=== PATIENT | female | born 1945 | race Caucasian/White ===

== ENCOUNTER 2018-07-06 13:16 | Inpatient (IN) | payer MEDICARE, OTHER ==
[~2018-07-06] VITALS: Ht 165.1 cm; Wt 65.3 kg
[~2018-07-06 13:16] MED LIST: VENTOLIN INH; Z FERROUS GLUCON PO; Z.0.ADVAIR 100-501 E IH; Z.0.ASPIR 8181 MG PO; Z.0.CARVEDILOL25 MG PO; Z.0.DETROL LA4 MG PO; Z.0.EXFORGE HCT 101 PO; Z.0.KLOR-CON20 MEQ PO; Z.0.LASIX20 MG PO; Z.0.LEVOTHROID75 MCG PO; Z.0.LEXAPRO20 MG PO; Z.0.LIPITOR10 MG PO; Z.0.MIRAPEX0.25 MG PO; Z.0.NEURONTIN300 MG PO; Z.0.PLAVIX75 MG PO; Z.0.PREMARIN0.625 MG PO; Z.0.PROTONIX40 MG PO; Z.0.VOLTAREN75 MG PO; Z.0.ZYRTEC10 M3 PO; [UNRECOGNIZED DRUG - OTHER] PO
[2018-07-06 14:08] LABS: BASOPHILS # (AUTO) 0.1 (0.0-0.1); BASOPHILS % 0.5 % (0.0-1.0); EOSINOPHILS # (AUTO) 0.4 (0.0-0.4); EOSINOPHILS % 3.4 % (0.0-6.0); HEMATOCRIT 36.7 % (34.2-44.1); HEMOGLOBIN 12.2 g/dL (12.0-16.0); LYMPHOCYTES # (AUTO) 1.2 (1.0-3.2); MEAN CORPUSCULAR HEMOGLOBIN 30.4 pg (28-32); MEAN CORPUSCULAR HGB CONC 33.2 g/dL (31-35); MEAN CORPUSCULAR VOLUME 91.5 fL (81-99); MONOCYTES # (AUTO) 0.8 (0.2-0.8); MONOCYTES % 7.5 % (4.4-11.3); NEUTROPHILS # (AUTO) 8.2 (2.1-6.9); NEUTROPHILS % 77.2 % (38.7-80.0); PLATELET COUNT 263 x10e3/uL (140-360); RED BLOOD COUNT 4.01 x10e6/uL (3.6-5.1); RED CELL DISTRIBUTION WIDTH 13.3 % (11.7-14.4)
[2018-07-06] MEDS ORDERED: AZITHROMYCIN 500MG/NS 250 ML 250 ML IV ONE (14:16)
[2018-07-06 14:27] LABS: ALANINE AMINOTRANSFERASE 22 IU/L (0-55); ALBUMIN 4.1 g/dL (3.5-5.0); ALBUMIN/GLOBULIN RATIO 1.2 (0.8-2.0); ALKALINE PHOSPHATASE 41 IU/L (40-150); ANION GAP 11.9 mmol/L (8-16); BLOOD UREA NITROGEN 16 mg/dL (7-26); BUN/CREATININE RATIO 20 (6-25); CALCIUM 9.8 mg/dL (8.4-10.2); CARBON DIOXIDE 29 mmol/L (22-29); CHLORIDE 100 mmol/L (98-107); CREATINE KINASE 114 IU/L (29-168); CREATININE, SERUM 0.81 mg/dL (0.57-1.11); EST GLOMERULAR FILTRATION RATE > 60 ML/MIN (60-); GLUCOSE 97 mg/dL (74-118); LIPASE 16 U/L (8-78); POTASSIUM 3.9 mmol/L (3.5-5.1); SODIUM 137 mmol/L (136-145)
[2018-07-06] MEDS ORDERED: CEFTRIAXONE SOD 1 GM VIAL IV SCH (14:30)
[2018-07-06] MEDS ORDERED: ASPIRIN 81 MG CHEW TAB PO ONE (14:30)
[2018-07-06] MEDS ORDERED: ALBUTEROL SULF 0.083% NEB SOLN 3 ML NEB NEB SCH (14:30)
[2018-07-06] MEDS ORDERED: LOSARTAN POTAS100 MG PO (15:41)
[2018-07-06] MEDS ORDERED: AMLODIPINE BESYL5 MG PO (15:41)
[2018-07-06] MEDS ORDERED: TIZANIDINE HCL4 MG PO (15:41)
[2018-07-06] MEDS ORDERED: FENOFIBRATE145 MG PO (15:41)
[2018-07-06] MEDS ORDERED: ROPINIROLE HCL1 MG PO (15:41)
--- NOTE | 2018-07-06 15:59 | Diagnostic Imaging Report ---
EXAMINATION: CHEST SINGLE (PORTABLE) INDICATION: Cough. COMPARISON: None FINDINGS: TUBES and LINES: None. LUNGS: Moderate lung volumes. Patchy opacities at the lung bases, left greater than right. Central vascular congestion without cal pulmonary edema. PLEURA: No pleural effusion or pneumothorax. HEART AND MEDIASTINUM: Mild enlargement of the cardiomediastinal silhouette. BONES AND SOFT TISSUES: No acute osseous lesion. Soft tissues are unremarkable. Status post median sternotomy. UPPER ABDOMEN: No free air under the diaphragm. IMPRESSION: Patchy opacities at the lung bases, left greater than right, which could represent pneumonia in a patient with cough. Follow-up chest radiograph to assess of resolution is suggested in 6-8 weeks. Mild cardiomegaly with central vascular congestion. Signed by: Dr. Cielo Salgado MD on 07/06/2018 3:56 PM
[2018-07-06 17:17] LABS: BILIRUBIN,URINE NEGATIVE (NEGATIVE); CLARITY,URINE CLEAR (CLEAR); COLOR,URINE YELLOW (YELLOW); KETONES,URINE NEGATIVE (NEGATIVE); LEUKOCYTE ESTERASE ,URINE NEGATIVE (NEGATIVE); NITRITE,URINE NEGATIVE (NEGATIVE); PROTEIN,URINE DIPSTICK NEGATIVE (NEGATIVE); URINE UROBILINOGEN 1 mg/dL (0.2 - 1)
[2018-07-06] MEDS ORDERED: ONDANSETRON HCL INJ 2 MG/ML VIAL IV PRN (17:30)
[2018-07-06] MEDS ORDERED: PIPER-TAZ 3.375 GM / NS 50ML IV SCH (17:30)
[2018-07-06] MEDS ORDERED: VANCOMYCIN 1GM/NS 250 ML 250 ML IV ONE (17:30)
[2018-07-06] MEDS ORDERED: PIPER-TAZ 3.375 GM 50 ML IV SCH (17:31)
[2018-07-06] MEDS: HYDRALAZINE HCL 20 MG/ML VIAL IV PRN (17:32)
[2018-07-06 17:35] LABS: AMORPHOUS SEDIMENT,URINE FEW (FEW); BACTERIA,URINE FEW /HPF; EPITHELIAL CELLS,URINE MODERATE /LPF; MUCUS,URINE MODERATE (RARE)
[2018-07-06] MEDS ORDERED: EPINEPHRINE 2.25% INH NEBU SOL 0.5 ML VIAL INH ONE (17:45)
[2018-07-06] MEDS ORDERED: IPRATROPIUM BROMIDE 0.02% 2.5 ML NEB NEB SCH (18:00)
[2018-07-06] MEDS: METHYLPREDNISOLONE SOD SUCC 125 MG/2ML VIAL IV SCH ×2 (18:50→22:13)
[2018-07-06] MEDS: ACETAMINOPHEN 325 MG TAB PO PRN (18:50)
[2018-07-06] MEDS: ALBUTEROL/IPRATROPIUM 3 ML NEB NEB SCH ×2 (19:00→21:00)
[2018-07-06] MEDS ORDERED: SODIUM CHLORIDE 0.9% 250ML 250 ML ONE (19:55)
[2018-07-06 20:00] VITALS: BP 142/60
[2018-07-06] MEDS: ROPINIROLE HCL 1 MG TAB PO SCH (22:12)
[2018-07-06] MEDS: HEPARIN SOD (PORCINE) 5,000 UNIT/ML VIAL SC SCH (22:12)
[2018-07-07] VITALS (8 sets, daily range): BP systolic 142–195; BP diastolic 64–86
[2018-07-07] MEDS: ALBUTEROL/IPRATROPIUM 3 ML NEB NEB SCH ×6 (01:34→23:00)
[2018-07-07] MEDS: PIPER-TAZ 3.375 GM 50 ML IV SCH ×3 (04:03→20:40)
[2018-07-07] MEDS: METHYLPREDNISOLONE SOD SUCC 125 MG/2ML VIAL IV SCH ×3 (05:21→22:54)
[2018-07-07] MEDS: LEVOTHYROXINE SODIUM 75 MCG TAB PO SCH (05:21)
[2018-07-07 05:32] LABS: BASOPHILS % 0.1 % (0.0-1.0); HEMOGLOBIN 11.5 g/dL (12.0-16.0); LYMPHOCYTES # (AUTO) 0.5 (1.0-3.2); MEAN CORPUSCULAR HEMOGLOBIN 30.4 pg (28-32); MEAN CORPUSCULAR HGB CONC 33.8 g/dL (31-35); MEAN CORPUSCULAR VOLUME 89.9 fL (81-99); MONOCYTES # (AUTO) 0.1 (0.2-0.8); MONOCYTES % 1.1 % (4.4-11.3); NEUTROPHILS # (AUTO) 6.9 (2.1-6.9); NEUTROPHILS % 91.4 % (38.7-80.0); PLATELET COUNT 242 x10e3/uL (140-360); RED BLOOD COUNT 3.78 x10e6/uL (3.6-5.1)
[2018-07-07] MEDS: HYDRALAZINE HCL 20 MG/ML VIAL IV PRN (05:36)
[2018-07-07 05:50] LABS: INR 1.05; PROTHROMBIN TIME 14.6 seconds (11.9-14.5)
[2018-07-07 05:51] LABS: PARTIAL THROMBOPLASTIN TIME 31.8 seconds (23.8-35.5)
[2018-07-07 06:00] LABS: ANION GAP 13.7 mmol/L (8-16); BLOOD UREA NITROGEN 14 mg/dL (7-26); BUN/CREATININE RATIO 19 (6-25); CALCIUM 9.4 mg/dL (8.4-10.2); CARBON DIOXIDE 25 mmol/L (22-29); CHLORIDE 104 mmol/L (98-107); CREATININE, SERUM 0.74 mg/dL (0.57-1.11); EST GLOMERULAR FILTRATION RATE > 60 ML/MIN (60-); GLUCOSE 163 mg/dL (74-118); POTASSIUM 3.7 mmol/L (3.5-5.1); SODIUM 139 mmol/L (136-145)
--- NOTE | 2018-07-07 06:45 | Diagnostic Imaging Report ---
EXAM: CHEST SINGLE (PORTABLE), AP 1 view INDICATION: Pneumonia COMPARISON: AP view of the chest July 06, 2018 FINDINGS: LINES/TUBES: None LUNGS: Bilateral airspace opacities, predominantly in the lung bases. PLEURA: No effusions or pneumothorax. HEART AND MEDIASTINUM: Normal size and contour. BONES AND SOFT TISSUES: No acute findings. Median sternotomy wires. IMPRESSION: Findings consistent with multifocal pneumonia, not significantly changed. Signed by: Dr. Queta Baer M.D. on 07/07/2018 6:42 AM
[2018-07-07 06:52] LABS: THYROID STIMULATING HORMONE 0.672 uIU/mL (0.350-4.940)
[2018-07-07] MEDS: HEPARIN SOD (PORCINE) 5,000 UNIT/ML VIAL SC SCH ×2 (08:41→20:41)
[2018-07-07] MEDS: LOSARTAN POTASSIUM 100 MG TAB PO SCH (08:56)
[2018-07-07] MEDS: ASPIRIN 81 MG CHEW TAB PO SCH (08:56)
[2018-07-07] MEDS: PANTOPRAZOLE SOD 40 MG TABEC PO SCH (08:56)
[2018-07-07] MEDS: TOLTERODINE TARTRATE 4 MG CAPCR PO SCH (08:57)
[2018-07-07] MEDS: AMLODIPINE BESYLATE 5 MG TAB PO SCH (08:57)
[2018-07-07] MEDS: ATORVASTATIN 10 MG TAB PO SCH (08:57)
[2018-07-07] MEDS: TIZANIDINE HCL 4 MG TAB PO SCH (08:57)
[2018-07-07] MEDS: CLOPIDOGREL BISULFATE 75 MG TAB PO SCH (08:57)
[2018-07-07] MEDS: ESCITALOPRAM OXALATE 10 MG TAB PO SCH (08:57)
[2018-07-07] MEDS ORDERED: LEVOTHYROXINE SODIUM 75 MCG TAB PO SCH (09:00)
[2018-07-07] MEDS ORDERED: NON-FORMULARY MEDICATION (Escitalopram Oxalate (Lexapro) 20 MG) PO SCH (09:00)
[2018-07-07] MEDS ORDERED: ASPIRIN 81 MG PO SCH (09:00)
[2018-07-07] MEDS: VANCOMYCIN 1GM/NS 250 ML 250 ML IV SCH ×2 (11:00→21:25)
[2018-07-07] MEDS: AZITHROMYCIN 500MG/NS 250 ML 250 ML IV SCH (13:00)
[2018-07-07] MEDS: GABAPENTIN 300 MG CAP PO SCH ×2 (16:02→20:40)
[2018-07-07] MEDS: ROPINIROLE HCL 1 MG TAB PO SCH (20:40)
[2018-07-08] VITALS: BP 180/74
[2018-07-08] MEDS: ALBUTEROL/IPRATROPIUM 3 ML NEB NEB SCH ×6 (02:15→23:55)
[2018-07-08 03:45] VITALS: BP 178/75
--- NOTE | 2018-07-08 03:46 | Consultation ---
DATE OF CONSULTATION: COVERING FOR: Dr. Mehdi Mayen HISTORY OF PRESENT ILLNESS: Patient is a 73-year-old female, consulted due to the presence of coughing for 2 days, shortness of breath with brown phlegm. No significant chest pains. She is also complaining of runny nose, although no sore throat. Patient does not have significant history of lung problems. No previous intubation besides related to surgeries. She has history of hypertension, hyperlipidemia, coronary artery disease with previous MS, a triple bypass done 10 years ago, and hypothyroidism. She denies to have diabetes mellitus. No GI problems. ; weak bladder. She has arthritis. PAST SURGICAL HISTORY: In terms of surgeries besides a triple bypass, cholecystectomy, hysterectomy, right eye surgery for cataract, laser treatment in the left eye. ALLERGIES: SHE IS NOT ALLERGIC TO MEDICATIONS. SOCIAL HISTORY: Never smoked. She denies alcohol or illicit drug abuse. REVIEW OF SYSTEMS: She does not have headache, nausea, vomiting, diarrhea, constipation, abdominal pain or any other any other pains. PHYSICAL EXAMINATION GENERAL: She is alert and cooperative. VITAL SIGNS: Afebrile. Blood pressure initial was 179/61, pulse 72, respiratory rate 18. HEENT: Atraumatic. NECK: No tenderness. LUNGS: No rhonchi or rales right now. HEART: No murmurs. ABDOMEN: Soft. No tenderness. EXTREMITIES: No pedal edema. There are arthritic changes in the fingers. LABORATORY: In terms of the labs; white cell count was 11, rest of the CBC unremarkable. Chemistry was grossly unremarkable. Chest x-ray disclosed multifocal pneumonia. IMPRESSION: When she was admitted, she was having wheezes as well as significant shortness of breath. Patient was given Zithromax, Zosyn and vancomycin IV as well as steroids and nebulizations. Currently, she is not having shortness of breath. She is feeling better. PLAN: We will recommend to repeat the chest x-ray sometime tomorrow. I agree with the current medications. FINAL DIAGNOSES 1. Multifocal pneumonia. 2. Increasing shortness of breath. 3. Coronary artery disease with previous myocardial infarction and triple bypass. 4. Hypertension. 5. Hypothyroidism. 6. Arthritis. 7. Hyperlipidemia. Job#: [id number] RTY
[2018-07-08] MEDS: PIPER-TAZ 3.375 GM 50 ML IV SCH (04:45)
[2018-07-08] MEDS: METHYLPREDNISOLONE SOD SUCC 125 MG/2ML VIAL IV SCH (06:23)
[2018-07-08] MEDS: LEVOTHYROXINE SODIUM 75 MCG TAB PO SCH (06:23)
[2018-07-08] MEDS: PANTOPRAZOLE SOD 40 MG TABEC PO SCH (08:15)
[2018-07-08] MEDS: TOLTERODINE TARTRATE 4 MG CAPCR PO SCH (08:33)
[2018-07-08] MEDS: ATORVASTATIN 10 MG TAB PO SCH (08:33)
[2018-07-08] MEDS: CLOPIDOGREL BISULFATE 75 MG TAB PO SCH (08:33)
[2018-07-08] MEDS: GABAPENTIN 300 MG CAP PO SCH ×3 (08:33→20:54)
[2018-07-08] MEDS: ASPIRIN 81 MG CHEW TAB PO SCH (08:33)
[2018-07-08] MEDS: ESCITALOPRAM OXALATE 10 MG TAB PO SCH (08:33)
[2018-07-08] MEDS: LOSARTAN POTASSIUM 100 MG TAB PO SCH (08:33)
[2018-07-08] MEDS: AMLODIPINE BESYLATE 5 MG TAB PO SCH ×2 (08:33→17:00)
[2018-07-08] MEDS: TIZANIDINE HCL 4 MG TAB PO SCH (08:34)
[2018-07-08] MEDS: HEPARIN SOD (PORCINE) 5,000 UNIT/ML VIAL SC SCH ×2 (08:34→20:54)
--- NOTE | 2018-07-08 09:32 | Diagnostic Imaging Report ---
EXAMINATION: CHEST 2 VIEWS INDICATION: ^SOB ^[id number] ^0840 ^Y COMPARISON: 07/07/2018 FINDINGS: PA and lateral views TUBES and LINES: None. LUNGS: Lungs are well inflated. Bilateral predominantly lower lung field airspace opacities. PLEURA: No significant pleural effusion or pneumothorax. HEART AND MEDIASTINUM: The cardiac silhouette is enlarged. Median sternotomy wires. BONES AND SOFT TISSUES: No acute osseous lesion. Soft tissues are unremarkable. UPPER ABDOMEN: No free air under the diaphragm. IMPRESSION: Bilateral predominantly lower lung field airspace opacities, representing edema and/or pneumonia. Signed by: Dr. Roosevelt Johnson MD on 07/08/2018 9:28 AM
[2018-07-08] MEDS: VANCOMYCIN 1GM/NS 250 ML 250 ML IV SCH (11:30)
[2018-07-08 12:19] VITALS: BP 178/73
[2018-07-08] MEDS: AZITHROMYCIN 500MG/NS 250 ML 250 ML IV SCH (13:30)
[2018-07-08] MEDS: CEFTRIAXONE SOD 1 GM VIAL IV SCH (14:12)
[2018-07-08] MEDS: HYDRALAZINE HCL 25 MG TAB PO SCH ×4 (14:14→23:54)
[2018-07-08 16:42] VITALS: BP 165/76
[2018-07-08 20:00] VITALS: BP 190/83
[2018-07-08 20:30] VITALS: BP 190/83
[2018-07-08] MEDS: ROPINIROLE HCL 1 MG TAB PO SCH (20:54)
[2018-07-08] MEDS: METHYLPREDNISOLONE SOD SUCC 40 MG/ML VIAL IV SCH (20:54)
[2018-07-08] MEDS: HYDRALAZINE HCL 20 MG/ML VIAL IV PRN (20:57)
[2018-07-08] MEDS ORDERED: METHYLPREDNISOLONE SOD SUCC 125 MG/2ML VIAL IV SCH (21:00)
[2018-07-08] MEDS: ACETAMINOPHEN 325 MG TAB PO PRN (23:54)
[2018-07-09] VITALS (8 sets, daily range): BP systolic 136–202; BP diastolic 63–91
[2018-07-09] MEDS: ZOLPIDEM TARTRATE 5 MG TAB PO PRN ×2 (02:37→21:46)
[2018-07-09] MEDS: ALBUTEROL/IPRATROPIUM 3 ML NEB NEB SCH ×6 (02:55→23:01)
--- NOTE | 2018-07-09 03:55 | Progress Note ---
DATE: PROGRESS NOTE SUBJECTIVE: Patient is still coughing with some green phlegm. The breathing is better. No chest pains. OBJECTIVE VITAL SIGNS: She is afebrile. Pulse 68, blood pressure 145/62, respiratory rate 18, saturation 96%. HEENT: Atraumatic. NECK: No tenderness. LUNGS: Some rhonchi. HEART: No murmurs. ABDOMEN: Soft. EXTREMITIES: No pedal edema. LABS: In terms of the labs, the sugar was reported 163. Rest of the chemistry was unremarkable. CBC was unremarkable. IMPRESSION 1. Multifocal pneumonia. 2. Shortness of breath. 3. Hypertension. 4. Coronary artery disease. 5. Hypothyroidism. RECOMMENDATIONS: Patient is currently on albuterol, Atrovent breathing treatment q.4., Solu-Medrol 60 mg q. 4 hours, Protonix 40 mg q. day. She is on vancomycin 1 g q. 12, Zosyn, and she is on Zithromax as well. Overall, the patient is improving. My recommendation is to continue with the current medication. Job#: [id number] RTY
[2018-07-09] MEDS: LEVOTHYROXINE SODIUM 75 MCG TAB PO SCH (05:27)
[2018-07-09] MEDS: HYDRALAZINE HCL 20 MG/ML VIAL IV PRN (05:27)
[2018-07-09] MEDS: PANTOPRAZOLE SOD 40 MG TABEC PO SCH (08:05)
[2018-07-09] MEDS: ASPIRIN 81 MG CHEW TAB PO SCH (08:05)
[2018-07-09] MEDS: CLOPIDOGREL BISULFATE 75 MG TAB PO SCH (08:05)
[2018-07-09] MEDS: ESCITALOPRAM OXALATE 10 MG TAB PO SCH (08:05)
[2018-07-09] MEDS: HYDRALAZINE HCL 25 MG TAB PO SCH ×3 (08:05→21:21)
[2018-07-09] MEDS: GABAPENTIN 300 MG CAP PO SCH ×3 (08:05→21:21)
[2018-07-09] MEDS: LOSARTAN POTASSIUM 100 MG TAB PO SCH (08:05)
[2018-07-09] MEDS: TOLTERODINE TARTRATE 4 MG CAPCR PO SCH (08:05)
[2018-07-09] MEDS: METHYLPREDNISOLONE SOD SUCC 40 MG/ML VIAL IV SCH ×2 (08:05→21:21)
[2018-07-09] MEDS: TIZANIDINE HCL 4 MG TAB PO SCH (08:05)
[2018-07-09] MEDS: HEPARIN SOD (PORCINE) 5,000 UNIT/ML VIAL SC SCH ×2 (08:05→21:21)
[2018-07-09] MEDS: ATORVASTATIN 10 MG TAB PO SCH (08:05)
[2018-07-09] MEDS: AMLODIPINE BESYLATE 5 MG TAB PO SCH ×2 (08:05→17:48)
[2018-07-09] MEDS: AZITHROMYCIN 500MG/NS 250 ML 250 ML IV SCH (12:05)
[2018-07-09] MEDS: CEFTRIAXONE SOD 1 GM VIAL IV SCH (14:30)
[2018-07-09] MEDS: ROPINIROLE HCL 1 MG TAB PO SCH (21:21)
--- NOTE | 2018-07-09 23:41 | Progress Note ---
DATE: SUBJECTIVE: Patient is a 73-year-old with some improvement in terms of the shortness of breath, coughing, and chest pain. She is still having high levels of blood pressure. OBJECTIVE: GENERAL: She is alert and cooperative. VITAL SIGNS: Afebrile. Pulse 77. Last blood pressure reported 178/75, respiratory rate 21, oxygen saturation 99. HEENT: Atraumatic. NECK: No tenderness. LUNGS: Clear. HEART: No heart murmurs. ABDOMEN: Soft. EXTREMITIES: No pedal edema. LABS: In terms of the labs, bedsides sugar of 163 as reported in the chart, the rest of the chemistry was unremarkable. The CBC was unremarkable. IMPRESSION: 1. Multifocal pneumonia. 2. Shortness of breath along with coughing and chest pain. 3. Uncontrolled hypertension. 4. Hypothyroidism. RECOMMENDATION: To continue with steroids, currently on Zithromax, Zosyn, and vancomycin, and she is also on nebulizations, and the results are that language is continuously improving. Besides that, she is getting medication for her blood pressure, multiple medications, as well as for her hypothyroidism. FINAL DIAGNOSES 1. Shortness of breath, cough, and chest pain. 2. Multifocal pneumonia. 3. Uncontrolled hypertension. 4. Coronary artery disease. 5. Hypothyroidism. Job#: [id number]
[2018-07-10] VITALS: BP 195/92
[2018-07-10] MEDS: HYDRALAZINE HCL 20 MG/ML VIAL IV PRN (00:09)
[2018-07-10] MEDS: ALBUTEROL/IPRATROPIUM 3 ML NEB NEB SCH ×6 (03:00→23:20)
[2018-07-10 04:00] VITALS: BP 175/81
[2018-07-10] MEDS: LEVOTHYROXINE SODIUM 75 MCG TAB PO SCH (05:34)
[2018-07-10 07:55] VITALS: BP 213/90
[2018-07-10] MEDS: METHYLPREDNISOLONE SOD SUCC 40 MG/ML VIAL IV SCH ×2 (09:10→20:41)
[2018-07-10] MEDS: TOLTERODINE TARTRATE 4 MG CAPCR PO SCH (09:10)
[2018-07-10] MEDS: CLOPIDOGREL BISULFATE 75 MG TAB PO SCH (09:10)
[2018-07-10] MEDS: LOSARTAN POTASSIUM 100 MG TAB PO SCH (09:10)
[2018-07-10] MEDS: ASPIRIN 81 MG CHEW TAB PO SCH (09:10)
[2018-07-10] MEDS: ESCITALOPRAM OXALATE 10 MG TAB PO SCH (09:10)
[2018-07-10] MEDS: GABAPENTIN 300 MG CAP PO SCH ×3 (09:10→20:42)
[2018-07-10] MEDS: HEPARIN SOD (PORCINE) 5,000 UNIT/ML VIAL SC SCH ×2 (09:10→20:42)
[2018-07-10] MEDS: TIZANIDINE HCL 4 MG TAB PO SCH (09:10)
[2018-07-10] MEDS: AMLODIPINE BESYLATE 5 MG TAB PO SCH ×2 (09:10→16:40)
[2018-07-10] MEDS: PANTOPRAZOLE SOD 40 MG TABEC PO SCH (09:10)
[2018-07-10] MEDS: ATORVASTATIN 10 MG TAB PO SCH (09:10)
[2018-07-10] MEDS ORDERED: HYDRALAZINE HCL 25 MG TAB PO ONE (10:45)
[2018-07-10 12:00] VITALS: BP 178/81
[2018-07-10] MEDS ORDERED: FUROSEMIDE INJ 10 MG/ML 4 ML VIAL IV SCH (12:45)
[2018-07-10] MEDS: CEFTRIAXONE SOD 1 GM VIAL IV SCH (12:49)
[2018-07-10] MEDS: AZITHROMYCIN 500MG/NS 250 ML 250 ML IV SCH (12:49)
[2018-07-10 13:18] LABS: BASOPHILS % 0.1 % (0.0-1.0); HEMATOCRIT 31.6 % (34.2-44.1); HEMOGLOBIN 10.6 g/dL (12.0-16.0); LYMPHOCYTES # (AUTO) 0.4 (1.0-3.2); LYMPHOCYTES % 4.6 % (18.0-39.1); MEAN CORPUSCULAR HEMOGLOBIN 30.4 pg (28-32); MEAN CORPUSCULAR HGB CONC 33.5 g/dL (31-35); MEAN CORPUSCULAR VOLUME 90.5 fL (81-99); MONOCYTES # (AUTO) 0.3 (0.2-0.8); MONOCYTES % 3.4 % (4.4-11.3); NEUTROPHILS # (AUTO) 8.7 (2.1-6.9); NEUTROPHILS % 90.3 % (38.7-80.0); PLATELET COUNT 288 x10e3/uL (140-360); RED BLOOD COUNT 3.49 x10e6/uL (3.6-5.1); RED CELL DISTRIBUTION WIDTH 13.8 % (11.7-14.4)
[2018-07-10 13:41] LABS: ALANINE AMINOTRANSFERASE 28 IU/L (0-55); ALBUMIN 2.9 g/dL (3.5-5.0); ALBUMIN/GLOBULIN RATIO 0.8 (0.8-2.0); ALKALINE PHOSPHATASE 42 IU/L (40-150); ANION GAP 13.9 mmol/L (8-16); BLOOD UREA NITROGEN 20 mg/dL (7-26); BUN/CREATININE RATIO 26 (6-25); CALCIUM 9.4 mg/dL (8.4-10.2); CARBON DIOXIDE 28 mmol/L (22-29); CHLORIDE 101 mmol/L (98-107); CREATININE, SERUM 0.77 mg/dL (0.57-1.11); EST GLOMERULAR FILTRATION RATE > 60 ML/MIN (60-); GLUCOSE 218 mg/dL (74-118); POTASSIUM 3.9 mmol/L (3.5-5.1); SODIUM 139 mmol/L (136-145)
[2018-07-10] MEDS ORDERED: HYDRALAZINE HCL 25 MG TAB PO SCH (15:00)
[2018-07-10 15:18] VITALS: BP 161/71
[2018-07-10] MEDS: HYDRALAZINE HCL 100 MG TABLET PO SCH ×2 (16:40→20:42)
[2018-07-10 19:50] VITALS: BP 179/79
[2018-07-10] MEDS: ROPINIROLE HCL 1 MG TAB PO SCH (20:42)
[2018-07-10] MEDS ORDERED: ZOLPIDEM TARTRATE 5 MG TAB PO PRN (21:00)
[2018-07-11] VITALS: BP 189/75
[2018-07-11] MEDS: ALBUTEROL/IPRATROPIUM 3 ML NEB NEB SCH ×2 (03:27→07:00)
[2018-07-11] MEDS: LEVOTHYROXINE SODIUM 75 MCG TAB PO SCH (05:51)
[2018-07-11 08:00] VITALS: BP 196/81
[2018-07-11] MEDS: HYDRALAZINE HCL 100 MG TABLET PO SCH ×3 (08:50→21:00)
[2018-07-11] MEDS: AMLODIPINE BESYLATE 5 MG TAB PO SCH (08:50)
[2018-07-11] MEDS: PANTOPRAZOLE SOD 40 MG TABEC PO SCH (08:50)
[2018-07-11] MEDS: TOLTERODINE TARTRATE 4 MG CAPCR PO SCH (08:50)
[2018-07-11] MEDS: ASPIRIN 81 MG CHEW TAB PO SCH (08:50)
[2018-07-11] MEDS: ESCITALOPRAM OXALATE 10 MG TAB PO SCH (08:50)
[2018-07-11] MEDS: LOSARTAN POTASSIUM 100 MG TAB PO SCH (08:50)
[2018-07-11] MEDS: TIZANIDINE HCL 4 MG TAB PO SCH (08:50)
[2018-07-11] MEDS: ATORVASTATIN 10 MG TAB PO SCH (08:50)
[2018-07-11] MEDS: HEPARIN SOD (PORCINE) 5,000 UNIT/ML VIAL SC SCH ×2 (08:50→21:00)
[2018-07-11] MEDS: CLOPIDOGREL BISULFATE 75 MG TAB PO SCH (08:50)
[2018-07-11] MEDS: GABAPENTIN 300 MG CAP PO SCH ×3 (08:50→21:00)
[2018-07-11] MEDS: METHYLPREDNISOLONE SOD SUCC 40 MG/ML VIAL IV SCH (08:50)
--- NOTE | 2018-07-11 09:31 | Diagnostic Imaging Report ---
PROCEDURE: Frontal and lateral views of the chest. COMPARISON: Chest radiograph 07/07/18. INDICATIONS: SHORTNESS OF BREATH, CONGESTION FINDINGS: Lines/tubes: None. Lungs: Patchy opacities at the lung bases, slightly increased on the left and decreased on the right. No evidence of pulmonary edema. Pleura: Trace right pleural effusion. No evidence of pneumothorax. Heart and mediastinum: Unchanged cardiomediastinal silhouette. Bones: No acute bony abnormality. Status post median sternotomy. IMPRESSION: Patchy lower lung zone opacities, which could represent multifocal pneumonia. Follow-up chest radiograph suggested in 6-8 weeks to assess for resolution. Dictated by: KUNAL LUCERO M.D. on 07/11/2018 at 9:41 Electronically approved by: KUNAL LUCERO M.D. on 07/11/2018 at 9:41
[2018-07-11] MEDS ORDERED: FUROSEMIDE INJ 10 MG/ML 4 ML VIAL IV ONE (10:45)
[2018-07-11] MEDS ORDERED: NIFEDIPINE CR 30 MG TAB PO SCH (10:45)
[2018-07-11] MEDS ORDERED: ALBUTEROL/IPRATROPIUM 3 ML NEB NEB PRN (11:00)
--- NOTE | 2018-07-11 11:20 | Diagnostic Imaging Report ---
EXAMINATION: CHEST SINGLE (PORTABLE) INDICATION: Chest pain. Back pain. Congestive heart failure. Pneumonia COMPARISON: 07/10/2018 FINDINGS: TUBES and LINES: None. LUNGS: Lungs are well inflated. Bilateral predominantly lower lung field airspace opacities slightly improved on the right. PLEURA: No significant pleural effusion or pneumothorax. HEART AND MEDIASTINUM: The cardiac silhouette is enlarged. Median sternotomy wires. BONES AND SOFT TISSUES: No acute osseous lesion. Soft tissues are unremarkable. UPPER ABDOMEN: No free air under the diaphragm. IMPRESSION: Bilateral predominantly lower lung field airspace opacities, representing edema and/or pneumonia. This has slightly improved on the right when compared with the prior exam. Follow-up imaging is indicated to document clearing. Signed by: Dr. Dmitriy Bowman M.D. on 07/11/2018 11:16 AM
[2018-07-11 11:41] VITALS: BP 166/68
[2018-07-11] MEDS: AZITHROMYCIN 500MG/NS 250 ML 250 ML IV SCH (12:02)
[2018-07-11] MEDS: CARVEDILOL 12.5 MG TAB PO SCH ×2 (12:02→22:31)
[2018-07-11] MEDS: CEFTRIAXONE SOD 1 GM VIAL IV SCH (12:50)
[2018-07-11 17:11] VITALS: BP 172/78
[2018-07-11 20:00] VITALS: BP 172/92
[2018-07-11] MEDS: ROPINIROLE HCL 1 MG TAB PO SCH (21:00)
[2018-07-11] MEDS: FUROSEMIDE INJ 10 MG/ML 4 ML VIAL IV SCH (21:00)
[2018-07-12] VITALS (7 sets, daily range): BP systolic 134–175; BP diastolic 63–80
[2018-07-12] MEDS: ACETAMINOPHEN 325 MG TAB PO PRN (03:32)
[2018-07-12] MEDS: LEVOTHYROXINE SODIUM 75 MCG TAB PO SCH (05:37)
[2018-07-12 05:56] LABS: BASOPHILS % 0.3 % (0.0-1.0); EOSINOPHILS # (AUTO) 0.1 (0.0-0.4); EOSINOPHILS % 0.5 % (0.0-6.0); HEMATOCRIT 34.6 % (34.2-44.1); HEMOGLOBIN 11.7 g/dL (12.0-16.0); LYMPHOCYTES % 18.7 % (18.0-39.1); MEAN CORPUSCULAR HEMOGLOBIN 30.1 pg (28-32); MEAN CORPUSCULAR HGB CONC 33.8 g/dL (31-35); MEAN CORPUSCULAR VOLUME 88.9 fL (81-99); MONOCYTES # (AUTO) 0.9 (0.2-0.8); MONOCYTES % 8.7 % (4.4-11.3); NEUTROPHILS # (AUTO) 7.6 (2.1-6.9); NEUTROPHILS % 70.3 % (38.7-80.0); PLATELET COUNT 368 x10e3/uL (140-360); RED BLOOD COUNT 3.89 x10e6/uL (3.6-5.1); RED CELL DISTRIBUTION WIDTH 13.5 % (11.7-14.4)
[2018-07-12 06:44] LABS: ANION GAP 11.2 mmol/L (8-16); BLOOD UREA NITROGEN 29 mg/dL (7-26); BUN/CREATININE RATIO 39 (6-25); CALCIUM 9.6 mg/dL (8.4-10.2); CARBON DIOXIDE 35 mmol/L (22-29); CHLORIDE 99 mmol/L (98-107); CREATININE, SERUM 0.75 mg/dL (0.57-1.11); EST GLOMERULAR FILTRATION RATE > 60 ML/MIN (60-); GLUCOSE 94 mg/dL (74-118); POTASSIUM 3.2 mmol/L (3.5-5.1); SODIUM 142 mmol/L (136-145)
[2018-07-12 06:58] LABS: ALANINE AMINOTRANSFERASE 26 IU/L (0-55); ALBUMIN 2.9 g/dL (3.5-5.0); ALBUMIN/GLOBULIN RATIO 0.9 (0.8-2.0); ALKALINE PHOSPHATASE 40 IU/L (40-150)
[2018-07-12] MEDS: ASPIRIN 81 MG CHEW TAB PO SCH (09:29)
[2018-07-12] MEDS: PANTOPRAZOLE SOD 40 MG TABEC PO SCH (09:29)
[2018-07-12] MEDS: TIZANIDINE HCL 4 MG TAB PO SCH (09:30)
[2018-07-12] MEDS: LOSARTAN POTASSIUM 100 MG TAB PO SCH (09:30)
[2018-07-12] MEDS: PREDNISONE 20 MG TAB PO SCH (09:30)
[2018-07-12] MEDS: HYDRALAZINE HCL 100 MG TABLET PO SCH ×3 (09:30→22:28)
[2018-07-12] MEDS: GABAPENTIN 300 MG CAP PO SCH ×3 (09:30→22:29)
[2018-07-12] MEDS: ATORVASTATIN 10 MG TAB PO SCH (09:30)
[2018-07-12] MEDS: TOLTERODINE TARTRATE 4 MG CAPCR PO SCH (09:30)
[2018-07-12] MEDS: CARVEDILOL 12.5 MG TAB PO SCH ×2 (09:30→22:28)
[2018-07-12] MEDS: HEPARIN SOD (PORCINE) 5,000 UNIT/ML VIAL SC SCH ×2 (09:38→22:30)
[2018-07-12] MEDS ORDERED: FUROSEMIDE INJ 10 MG/ML 4 ML VIAL IV SCH ×2 (09:45→11:45)
[2018-07-12] MEDS: FUROSEMIDE INJ 10 MG/ML 4 ML VIAL IV SCH (09:49)
[2018-07-12] MEDS ORDERED: POTASSIUM CHLORIDE 20 MEQ TAB CR PO STA (10:06)
[2018-07-12] MEDS ORDERED: POTASSIUM CHLORIDE 20MEQ/15ML UDC NG ONE (11:45)
[2018-07-12] MEDS: AZITHROMYCIN 500MG/NS 250 ML 250 ML IV SCH (11:52)
--- NOTE | 2018-07-12 14:04 | Diagnostic Imaging Report ---
EXAM: XR CHEST 2 VIEWS DATE: 07/12/2018 11:38 AM INDICATION: Pneumonia COMPARISON: 07/11/2018, no report available FINDINGS: Lines and Tubes: None Heart and Mediastinum: Sternotomy wires. Heart upper limits of normal. Aortic vascular calcifications. Lungs and Pleura: Biapical scarring. Asymmetric to the left bibasilar opacities. Bones and Soft Tissues: No acute findings. IMPRESSION: 1. Asymmetric to the left basilar opacities could represent atelectasis, edema, or pneumonia. Signed by: Dr. Andrea Granda MD on 07/12/2018 2:00 PM
[2018-07-12] MEDS: CEFTRIAXONE SOD 1 GM VIAL IV SCH (14:49)
[2018-07-12] MEDS: ESCITALOPRAM OXALATE 10 MG TAB PO SCH (22:28)
[2018-07-12] MEDS: ROPINIROLE HCL 1 MG TAB PO SCH (22:29)
[2018-07-12] MEDS: CLOPIDOGREL BISULFATE 75 MG TAB PO SCH (22:29)
[2018-07-13] VITALS (9 sets, daily range): BP systolic 97–202; BP diastolic 53–79
[2018-07-13] MEDS: LEVOTHYROXINE SODIUM 75 MCG TAB PO SCH (05:33)
[2018-07-13] MEDS: HEPARIN SOD (PORCINE) 5,000 UNIT/ML VIAL SC SCH (09:08)
[2018-07-13] MEDS: TIZANIDINE HCL 4 MG TAB PO SCH (09:08)
[2018-07-13] MEDS: ATORVASTATIN 10 MG TAB PO SCH (09:08)
[2018-07-13] MEDS: ASPIRIN 81 MG CHEW TAB PO SCH (09:08)
[2018-07-13] MEDS: PREDNISONE 20 MG TAB PO SCH (09:08)
[2018-07-13] MEDS: PANTOPRAZOLE SOD 40 MG TABEC PO SCH (09:08)
[2018-07-13] MEDS: TOLTERODINE TARTRATE 4 MG CAPCR PO SCH (09:08)
[2018-07-13] MEDS: GABAPENTIN 300 MG CAP PO SCH ×3 (09:08→21:01)
[2018-07-13] MEDS: LOSARTAN POTASSIUM 100 MG TAB PO SCH (09:08)
[2018-07-13] MEDS: HYDRALAZINE HCL 100 MG TABLET PO SCH ×3 (09:08→21:01)
[2018-07-13] MEDS: CARVEDILOL 12.5 MG TAB PO SCH ×2 (09:08→21:00)
[2018-07-13] MEDS: CEFTRIAXONE SOD 1 GM VIAL IV SCH (12:59)
--- NOTE | 2018-07-13 20:37 | Consultation ---
DATE OF CONSULTATION: July 13, 2018 CARDIAC CONSULTATION REASON FOR THE CONSULTATION: Labile hypertension with near-syncope. HISTORY: This is quite a delightful lady. She is 73. Known history of coronary artery disease, severe hypertension, hypothyroidism, on several medications. Everything is okay for almost more than 2 weeks ago, her became very sick. He is in intensive care unit with febrile illness. Herself also became very ill and very sick. She was felt having fevers, chills, failure to thrive. She was very ill. She came to this institution, diagnosed with pneumonia. She was started on IV antibiotics. She needed also to have her antihypertensive medication. She is usually on losartan Norvasc and Coreg. Hydralazine added for severe hypertension. It seems her Norvasc stopped. Patient having very difficult to control the blood pressure and she needs to have repeated doses of hydralazine. Today, her blood pressure was very high in the morning. She got some treatment. She got her regular dosing. She was seen by pulmonary. Plan was to ambulate her to see how well she is doing. Patient's blood pressure "was high in the morning". When she sat and then stands, she was very ill. She became pale. She was very hypotensive. She needs to go back in bed. Her blood pressure was in the 80s to the 90s. At that time, cardiac consultation was obtained. I came to visit with the patient. She is doing well. Her blood pressure in the 180 range to 200. She is doing well. She denied having any angina. She told me 2 months ago, she had cardiac stress test and other tests done at [facility] and they told her bypasses are working. She denied having any anginal chest pain. During that episode on telemetry, there was no braxton, no tachy arrhythmia, and no malignant arrhythmias. There is some orthopnea, but no paroxysmal nocturnal dyspnea. There is no prior syncope or presyncope. REVIEW OF SYSTEMS CARDIAC: As per acute illness. GENERAL: Patient still very weak, but her temperature is better. Her appetite is a little bit better. PULMONARY: Still with cough, but by far, much better. There is no severe shortness of breath at rest. GI: Still with poor appetite. No hematemesis, no melena. : Patient is incontinent. : No hematuria, no dysuria. MUSCULOSKELETAL: Aches and pain and she is very tired and she is very exhausted. No localized motor deficits. HEMATOLOGY: No easy bruising or bleeding. No hematemesis, no melena. HEENT: No hearing problem. No vision problems SOCIAL HISTORY: She is . She is nonsmoker, [id number]. She is a housewife. CURRENT MEDICATIONS: Polypharmacy. 1. Losartan 100 mg a day. 2. Hydralazine 100 mg 3 times a day. 3. Coreg 25 mg twice a day. 4. Lipitor 10 mg a day. 5. Aspirin 81 mg a day. 6. Plavix 75 mg daily. 7. Fenofibrate 145 mg a day. 8. Levothyroxine 75 mcg a day. 9. Albuterol. 10. Protonix 40 mg a day. 11. Lexapro 20 mg a day. 12. Tizanidine. 13. 14. Requip. ALLERGIES: CODEINE. PAST MEDICAL HISTORY 1. Coronary artery disease, post coronary artery bypass surgery in 2008. 2. Hypertension. 3. Hypothyroidism. 4. Repeated UTI. 5. Cholecystectomy. FAMILY HISTORY: Father during his sleep with myocardial infarction. Mother of old age in her 80s. Twelve siblings, 5 brothers and 7 sisters, only 3 are alive. Several with myocardial infarction and pacemaker, few of cancer. One sister also of breast cancer. She does have 2 healthy daughters and grandchildren and great grandchildren. PHYSICAL EXAM VITALS: Height of 5'5. Weight of 150 pounds. Blood pressure 180/80. Heart rate of 80. Respiratory rate of 18. HEENT: Pupils are reactive. NECK: No elevation of jugular venous pulsation. No bruit. CHEST: Clear to auscultation and percussion. HEART: PMI 5th left intercostal space. Normal 1st and 2nd heart sound. Ejection systolic murmur is noted. ABDOMEN: Soft. No abdominal bruits. EXTREMITIES: No cyanosis. No clubbing. No edema. No signs of DVT. NEUROLOGIC: She is able to move extremities. No motor deficits. LABORATORY DATA: Most recent lab on the showed white blood cell count of 10.7, hemoglobin of 11.7 hematocrit 35%, platelet count of 268,000. BUN of 29, creatinine 0.75, sodium of 140. Potassium of 3.2. BNP of 112. TSH of 0.7. Cardiac enzymes are normal. EKG showing normal sinus bradycardia, nonspecific ST changes. IMPRESSIONS AND PLAN 1. Coronary artery disease, post coronary artery bypass surgery. No active angina. Patient claims 2 months ago she had workup including stress test at [facility], which was okay. 2. Labile hypertension and with episode of hypotension. Combination of patient bedrest and volume status combination of probably of her neuro medication in addition to hypertensive\\ medication. 3. Pneumonia, multifocal pneumonia by x-ray, on treatment. 4. Repeated urinary tract infection. 5. Debility. 6. Anxiety. Cardiac-campos my recommendation is to have patient on telemetry and will check EKG, will check new lab, will resume put patient on Norvasc and will put parameter on hold of hydralazine since patient did well in the past on the combination of Norvasc, Coreg. Will try to avoid diuretics. Will check orthostatic blood pressure. Will check a carotid Doppler for her near-syncope. Will follow patient's progression with you and would like to thank you for your kind referral. Job#: [id number]
[2018-07-13] MEDS: CLOPIDOGREL BISULFATE 75 MG TAB PO SCH (21:01)
[2018-07-13] MEDS: ESCITALOPRAM OXALATE 10 MG TAB PO SCH (21:01)
[2018-07-13] MEDS: ROPINIROLE HCL 1 MG TAB PO SCH (21:01)
[2018-07-14] VITALS (11 sets, daily range): BP systolic 75–174; BP diastolic 44–74
[2018-07-14] MEDS: HYDRALAZINE HCL 20 MG/ML VIAL IV PRN (00:17)
[2018-07-14 05:43] LABS: BASOPHILS % 0.4 % (0.0-1.0); EOSINOPHILS # (AUTO) 0.3 (0.0-0.4); EOSINOPHILS % 2.4 % (0.0-6.0); HEMATOCRIT 36.4 % (34.2-44.1); HEMOGLOBIN 12.4 g/dL (12.0-16.0); LYMPHOCYTES # (AUTO) 2.7 (1.0-3.2); LYMPHOCYTES % 24.2 % (18.0-39.1); MEAN CORPUSCULAR HEMOGLOBIN 30.3 pg (28-32); MEAN CORPUSCULAR HGB CONC 34.1 g/dL (31-35); MONOCYTES % 8.9 % (4.4-11.3); NEUTROPHILS # (AUTO) 6.7 (2.1-6.9); PLATELET COUNT 364 x10e3/uL (140-360); RED BLOOD COUNT 4.09 x10e6/uL (3.6-5.1); RED CELL DISTRIBUTION WIDTH 13.3 % (11.7-14.4)
[2018-07-14 06:16] LABS: ALANINE AMINOTRANSFERASE 23 IU/L (0-55); ALBUMIN 2.8 g/dL (3.5-5.0); ALBUMIN/GLOBULIN RATIO 0.9 (0.8-2.0); ALKALINE PHOSPHATASE 44 IU/L (40-150); ANION GAP 13.6 mmol/L (8-16); BLOOD UREA NITROGEN 28 mg/dL (7-26); BUN/CREATININE RATIO 38 (6-25); CALCIUM 9.2 mg/dL (8.4-10.2); CARBON DIOXIDE 28 mmol/L (22-29); CHLORIDE 103 mmol/L (98-107); CHOL/HDL RATIO 2.6 (3.0-3.6); CHOLESTEROL 121 MD/DL (0-199); CREATININE, SERUM 0.73 mg/dL (0.57-1.11); EST GLOMERULAR FILTRATION RATE > 60 ML/MIN (60-); GLUCOSE 94 mg/dL (74-118); HDL CHOLESTEROL 46 MG/DL (40-60); LDL CHOLESTEROL 42 MG/DL (60-130); POTASSIUM 3.6 mmol/L (3.5-5.1); SODIUM 141 mmol/L (136-145); TRIGLYCERIDES 165 MG/DL (0-149)
[2018-07-14] MEDS: LEVOTHYROXINE SODIUM 75 MCG TAB PO SCH (06:37)
[2018-07-14 08:33] LABS: BAND NEUTROPHILS % (MANUAL) 1 %; EOSINOPHILS % (MANUAL) 3 % (0-7); LYMPHOCYTES % (MANUAL) 25 % (19-48); MONOCYTES % (MANUAL) 7 % (3.4-9.0); NEUTROPHILS % (MANUAL) 64 % (40-74)
[2018-07-14 08:35] LABS: PLATELET ESTIMATE ADEQUATE; PLATELET MORPHOLOGY COMMENT NORMAL; RBC MORPHOLOGY COMMENT NORMAL
[2018-07-14] MEDS: ASPIRIN 81 MG CHEW TAB PO SCH (08:40)
[2018-07-14] MEDS: HYDRALAZINE HCL 100 MG TABLET PO SCH ×3 (08:40→21:15)
[2018-07-14] MEDS: LOSARTAN POTASSIUM 100 MG TAB PO SCH (08:40)
[2018-07-14] MEDS: GABAPENTIN 300 MG CAP PO SCH ×3 (08:40→21:16)
[2018-07-14] MEDS: TOLTERODINE TARTRATE 4 MG CAPCR PO SCH (08:40)
[2018-07-14] MEDS: ATORVASTATIN 10 MG TAB PO SCH (08:40)
[2018-07-14] MEDS: TIZANIDINE HCL 4 MG TAB PO SCH (08:40)
[2018-07-14] MEDS: PREDNISONE 5 MG TAB PO SCH (08:40)
[2018-07-14] MEDS: PANTOPRAZOLE SOD 40 MG TABEC PO SCH (08:40)
[2018-07-14] MEDS: CARVEDILOL 12.5 MG TAB PO SCH ×2 (08:40→21:16)
[2018-07-14] MEDS ORDERED: PREDNISONE 20 MG TAB PO SCH (09:00)
[2018-07-14] MEDS ORDERED: AMLODIPINE BESYLATE 5 MG TAB PO SCH (09:00)
[2018-07-14] MEDS: CEFTRIAXONE SOD 1 GM VIAL IV SCH (13:30)
--- NOTE | 2018-07-14 14:47 | Progress Note ---
DATE: Patient is a 73 year old. She is feeling better. No shortness of breath. No chest pain. No significant cough. PHYSICAL EXAMINATION GENERAL: She is alert and cooperative. VITALS: Afebrile, pulse 62, blood pressure 163/68, oxygen saturation 92, respiratory rate 18. HEENT: Atraumatic. NECK: No tenderness. LUNGS: Some crackles. HEART: No murmurs. ABDOMEN: Soft. EXTREMITIES: No pedal edema. LABS: The BUN is 28, potassium 3.6. The rest of the chemistry is unremarkable. The CBC was unremarkable. IMPRESSION 1. Pneumonia. 2. Sepsis. 3. Labile hypertension. 4. Coronary artery disease with previous coronary artery bypass graft. 5. Weakness. 6. She was having in the beginning multifocal pneumonia. RECOMMENDATIONS: I agree with Atrovent q.4 h. Prednisone. She is getting 50 mg daily. She is on Rocephin 1 g q.24 h. IV. She is on Protonix 40 mg a day. Besides that, she is also on levothyroxine 75 mcg a day, Coreg 25 mg q.12 h., and this among other medications. Job#: [id number] DANNY
--- NOTE | 2018-07-14 15:23 | Progress Note ---
DATE: I am covering for Dr. Bloom today. Patient feels better today. She states that her dyspnea and cough have improved. She says her main problem is her blood pressure. She sometimes feels lightheaded when she stands up. The patient was seen yesterday by cardiology. PHYSICAL EXAMINATION VITALS: The blood pressure is 104/56, but drops to 75/44 when the patient stands. Her pulse does not change and remains around 60. HEENT: Shows no facial swelling or erythema. The nasal mucosa is normal. The oropharynx is normal. LYMPHATIC: Shows no submandibular, cervical or supraclavicular adenopathy. CARDIAC: Reveals a regular rate and rhythm with a normal S1 and S2. There are no murmurs or rubs. LUNGS: Auscultation of lungs reveals clear breath sounds bilaterally. There is no wheezing. ABDOMEN: Soft and nontender. There is no rebound or guarding. EXTREMITIES: Shows no leg edema or calf tenderness. There is no cyanosis or clubbing. LABORATORY DATA: White blood cell count is 10.97 and the hemoglobin is 12.2. The platelet count is 364,000. The BUN to creatinine ratio is normal. The other electrolytes are within normal limits. The albumin is 2.8. Total protein is 6. The BUN to creatinine ratio is 28 to 0.73. The electrolytes are within normal limits. The albumin is 2.8 and the total protein is 6. The cholesterol is 121. The white blood cell count is 11 and the hemoglobin is 12.4. The platelet count is normal. Urinalysis is normal. RADIOGRAPHIC DATA: Chest x-ray shows some left basilar opacities. IMPRESSION 1. Pneumonia, possibly secondary to aspiration. 2. Orthostatic hypotension. 3. Hypertension. 4. Moderate protein calorie malnutrition. PLAN 1. Continue current antibiotics. 2. Swallowing evaluation to rule out any aspiration. 3. Reduce antihypertensives to prevent any further hypotension. 4. Evaluate the patient for underlying causes of orthostatic hypotension, including autonomic neuropathy. Job#: [id number] MS
[2018-07-14] MEDS: CLOPIDOGREL BISULFATE 75 MG TAB PO SCH (21:16)
[2018-07-14] MEDS: ROPINIROLE HCL 1 MG TAB PO SCH (21:16)
[2018-07-14] MEDS: ESCITALOPRAM OXALATE 10 MG TAB PO SCH (21:16)
[2018-07-15] VITALS: BP 178/77
[2018-07-15 04:00] VITALS: BP 182/72
[2018-07-15] MEDS: LEVOTHYROXINE SODIUM 75 MCG TAB PO SCH (06:19)
[2018-07-15] MEDS: HYDRALAZINE HCL 20 MG/ML VIAL IV PRN (06:34)
[2018-07-15 08:00] VITALS: BP 174/74
[2018-07-15 08:15] VITALS: BP 174/74
[2018-07-15] MEDS: ASPIRIN 81 MG CHEW TAB PO SCH (09:19)
[2018-07-15] MEDS: PANTOPRAZOLE SOD 40 MG TABEC PO SCH (09:19)
[2018-07-15] MEDS: TOLTERODINE TARTRATE 4 MG CAPCR PO SCH (09:20)
[2018-07-15] MEDS: HYDRALAZINE HCL 100 MG TABLET PO SCH (09:20)
[2018-07-15] MEDS: CARVEDILOL 12.5 MG TAB PO SCH (09:20)
[2018-07-15] MEDS: ATORVASTATIN 10 MG TAB PO SCH (09:20)
[2018-07-15] MEDS: GABAPENTIN 300 MG CAP PO SCH (09:20)
[2018-07-15] MEDS: LOSARTAN POTASSIUM 100 MG TAB PO SCH (09:20)
[2018-07-15] MEDS: PREDNISONE 5 MG TAB PO SCH (09:20)
[2018-07-15] MEDS: TIZANIDINE HCL 4 MG TAB PO SCH (09:21)
[2018-07-15 12:30] VITALS: BP 138/63
--- NOTE | 2018-07-15 12:54 | Progress Note ---
DATE: July 15, 2018 SUBJECTIVE: The patient feels much better. She has no cough or congestion. She is not having dyspnea. She is very eager to go home. She can walk to the bathroom and she states she will be staying with her daughter. PHYSICAL EXAMINATION VITAL SIGNS: Patient is afebrile. The blood pressure is 182/72 with a pulse of 66 and saturation of 94% on 1 liter. HEENT: Shows no facial swelling or erythema. CARDIAC: Regular rate and rhythm with a normal S1 and S2. LUNGS: Auscultation of lungs reveals clear breath sounds bilaterally. There is no wheezing. ABDOMEN: Soft and nontender. There is no rebound or guarding. EXTREMITIES: Show no leg edema or calf tenderness. IMPRESSION 1. Pneumonia, possibly secondary to aspiration. 2. Moderate protein-calorie malnutrition. 3. Hypertension. PLAN 1. Patient will be discharged home with oral antibiotics to complete a 14-day course of antibiotics. 2. She will followup with her primary physician at [facility] and possibly have a swallowing evaluation as an outpatient. 3. Discussed the case with Dr. Mccarthy of cardiology. He believes the patient has stiff arteries, which is artificially elevating her blood pressure readings. He recommended continuing her home medications. Job#: [id number] JAKE
--- NOTE | 2018-07-15 17:29 | Progress Note ---
DATE: Patient is a 73-year-old female complaining right now only of some cough. No shortness of breath. No chest pains. OBJECTIVE VITALS: Afebrile. There is some blood pressure of 165/70. Pulse , respiratory rate, and oxygen saturation within normal limits. HEENT: Atraumatic. NECK: No tenderness. LUNGS: With aeration. HEART: No heart murmurs. ABDOMEN: Soft. EXTREMITIES: No pedal edema. IMPRESSION 1. Multifocal pneumonia. 2. Hypertension. 3. Weakness. 4. Coronary artery disease with coronary artery bypass graft. 5. The patient was having sepsis. In terms of medications, she got nebulizations every 4 hours. She was on prednisone. She was on Rocephin 500 mg q.24 hours and along the admission, the patient improved significantly. Reported that the patient is being discharged in a fair condition. She needs to continue with nebulizations beside the medication that she is taking for different problems including hypertension, coronary artery disease, hypothyroidism, hypercholesterolemia and some antibiotic should be considered to be given for the coming days. Job#: [id number] WINNIE
== END 2018-07-15 13:46 | disposition home or self-care (01) | DRG 871 ==
LOC: ER 13:16 → ERHOLD 14:21 → IMCU 19:00 → OBSVTOIN 07-07 09:58 → MED/SURG3 07-11 13:50
PROVIDERS: ADMIT Internal Medicine; ATTEND Internal Medicine
DX: A41.9 Sepsis, unspecified organism (principal); J15.9 Unspecified bacterial pneumonia; J96.01 Acute respiratory failure with hypoxia; E44.0 Moderate protein-calorie malnutrition; R65.20 Severe sepsis without septic shock; I10 Essential (primary) hypertension; I25.10 Atherosclerotic heart disease of native coronary artery without angina pectoris; E03.9 Hypothyroidism, unspecified; Z95.1 Presence of aortocoronary bypass graft; Z88.5 Allergy status to narcotic agent; R32 Unspecified urinary incontinence; E78.5 Hyperlipidemia, unspecified; I25.2 Old myocardial infarction; Z82.49 Family history of ischemic heart disease and other diseases of the circulatory system; R53.81 Other malaise; F41.9 Anxiety disorder, unspecified; I95.1 Orthostatic hypotension; E87.6 Hypokalemia; I05.9 Rheumatic mitral valve disease, unspecified; I50.9 Heart failure, unspecified
CPT/HCPCS: 36415; 71045; 71046; 80048; 80053; 80061; 80202; 81001; 82550; 82553; 83605; 83690; 83735; 83880; 84132; 84145; 84443; 84484; 85025; 85610; 85730; 87040; 87070; 87081; 87205; 87400; 93005; 93306; 93880; 94640; 96367; 96372; 99284; G0378; J0360; J0456; J0696; J1644; J1940; J2543; J2920; J2930; J3370; J7050; J7512

== ENCOUNTER 2018-08-06 16:52 | Emergency (ER) | payer MEDICARE ==
[~2018-08-06] VITALS: Ht 165.1 cm; Wt 63.5 kg
[~2018-08-06 16:52] MED LIST changes: +AMLODIPINE BESYL5 MG PO; +FENOFIBRATE145 MG PO; +LOSARTAN POTAS100 MG PO; +ROPINIROLE HCL1 MG PO; +TIZANIDINE HCL4 MG PO
--- OUTSIDE RECORDS SUMMARY | 2018-08-06 16:55 | XMS REPORT ---
[facility] Address Unknown Phone Unavailable Care Team Providers Care Fitter Mechanic Name Role Phone Carmen SLOAN Unavailable Unavailable Problems This patient has no known problems. Allergies, Adverse Reactions, Alerts This patient has no known allergies or adverse reactions. Medications This patient has no known medications. Results Test Description Test Time Test Comments Text Results Atomic Results Result Comments CHEST 2 VIEWS 2018-07-12 14:00:00 [place] [address] Patient Name: FARHEEN YATES MR #: [id number] : 1945 Age/Sex: 73/F Req #: [id number] [facility] [place] Physician: ISSAC SLOAN MD Ordered by: ISSAC SOLAN MD Report #: [id number] Location: [facility] Room/Bed: Replaced by [facility] Procedure: [id number] DX/CHEST 2 VIEWS Exam Date: Exam Time: REPORT STATUS: Signed EXAM: XR CHEST 2 VIEWS DATE: 07/12/2018 11:38 AM INDICATION: Pneumonia COMPARISON: 07/11/2018, no report available FINDINGS: Lines and Tubes: None Heart and Mediastinum: Sternotomy wires. Heart upper limits of normal. Aortic vascular calcifications. Lungs and Pleura: Biapical scarring. Asymmetric to the left bibasilar opacities. Bones and Soft Tissues: No acute findings. IMPRESSION: 1. Asymmetric to the left basilar opacities could represent atelectasis, edema, or pneumonia. Signed by: Dr. Meagan Granda MD on 07/12/2018 2:00 PM Dictated By: MEAGAN GRANDA MD 1400 Transcribed By: MARIA A on 07/12/18 1400 COPY TO: ISSAC SLOAN MD CHEST SINGLE (PORTABLE) 2018-07-11 11:15:00 [place] [address] Patient Name: FARHEEN YATES MR #: [id number] : 1945 Age/Sex: 73/F Req #: [id number] Adm Physician: ISSAC SLOAN MD Ordered by: ISSAC SLOAN MD Report #: [id number] Location: [facility] Room/Bed: [place] [address] Procedure: [id number] DX/CHEST SINGLE (PORTABLE) Exam Date: 07/11/18 Exam Time: 1055 REPORT STATUS: Signed EXAMINATION: CHEST SINGLE (PORTABLE) FLAVIO CATION: Chest pain. Back pain. Congestive heart failure. Pneumonia COMPARISON: 07/10/2018 FINDINGS: TUBES and LINES: None. LUNGS: Lungs are well inflated. Bilateral predominantly lower lung field airspace opacities slightly improved on the right. PLEURA: No significant pleural effusion or pneumothorax. HEART AND MEDIASTINUM: The cardiac silhouette is enlarged. Median sternotomy wires. BONES AND SOFT TISSUES: No acute osseous lesion. Soft tissues are unremarkable. UPPER ABDOMEN: No free air under the diaphragm. IMPRESSION: Bilateral predominantly lower lung field airspace opacities, representing edema and/or pneumonia. This has slightly improved on the right when compared with the prior exam. Follow- up imaging is indicated to document clearing. Signed by: Dr. Belkys Bowman M.D. on 07/11/2018 11:16 AM Dictated By: BELKYS BOWMAN MD, MD 15 Transcribed By: MARIA A on 07/11/181115 COPY TO: ISSAC SLOAN MD CHEST 2 VIEWS 2018-07-11 09:41:00 [place] [address] Patient Name: FARHEEN YATES MR #: [id number] : 1945 Age/Sex: 73/F Req #: [id number] [facility] [place] Physician: ISSAC SLAON MD Ordered by: ALBER CASTELLON MD Report #: [id number] Location: [facility] Room/Bed: [place] [address] Procedure: [id number] DX/CHEST 2 VIEWS Exam Date: 07/10/18 Exam Time: 1537 REPORT STATUS: Signed PROCEDURE: Frontal and lateral views of the chest. CO MPARISON: Chest radiograph 07/07/18. INDICATIONS: SHORTNESS OF BREATH, CONGESTION FINDINGS: Lines/tubes: None. Lungs: Patchy opacities at the lung bases, slightly increased on the left and decreased on the right. No evidence of pulmonary edema. Pleura: Trace right pleural effusion. No evidence of pneumothorax. Heart and mediastinum: Unchanged cardiomediastinal silhouette. Bones: No acute bony abnormality. Status post median sternotomy. IMPRESSION: Patchy lower lung zone opacities, which could represent multifocal pneumonia. Follow-up chest radiograph suggested in 6-8 weeks to assess for resolution. Dictated by: KUNAL SALGADO M.D. on 07/11/2018 at 9:41 Electronically approved by: KUNAL SALGADO M.D. on 07/11/2018 at 9:41 Dictated By: KUNAL SALGADO MD 0 Transcribed By: DAVID on 07/11/18940 COPY TO: ALBER CASTELLON MD CHEST 2 VIEWS 2018-07-08 09:27:00 [place] [address] Patient Name: FARHEEN YATES MR #: [id number] : 1945 Age/Sex: 73/F Req #: [id number] Adm Physician: ISSAC SLOAN MD Ordered by: ANGIE SIERRA MD Report #: [id number] Location: [facility] Room/Bed: [place] [address] Procedure: [id number] DX/CHEST 2 VIEWS Exam Date: 07/08/18 Exam Time: 0840 REPORT STATUS: Signed EXAMINATION: CHEST 2 VIEWS INDICATION: SOB [id number] Y COMPARISON: 07/07/2018 FINDINGS: PA and lateral views TUBES and LINES: None. LUNGS: Lungs are well inflated. Bilateral predominantly lower lung field airspace opacities. PLEURA: No significant pleural effusion or pneumothorax. HEART AND MEDIASTINUM: The cardiac silhouette is enlarged. Median sternotomy wires. BONES AND SOFT TISSUES: No acute osseous lesion. Soft tissues are unremarkable. UPPER ABDOMEN: No free air under the diaphragm. IMPRESSION: Bilateral predominantly lower lung field airspace opacities, representing edema and/or pneumonia. Signed by: Dr. Roosevelt Torres MD on 07/08/2018 9:28 AM Dictated By: ROOSEVELT TORRES MD 7 Transcribed By: MARIA A on 07/08/1828 COPY TO: ANGIE SIERRA MD CHEST SINGLE (PORTABLE) 2018-07-07 06:41:00 [place] [address] Patient Name: FARHEEN YATES MR #: [id number] : 1945 Age/Sex: 73/F Req #: [id number] Adm Physician: ISSAC SLOAN MD Ordered by: ISSAC SLOAN MD Report #: [id number] Location: [facility] Room/Bed: [place] [address] Procedure: [id number] DX/CHEST SINGLE (PORTABLE) Exam Date: 07/07/18 Exam Time: 0555 REPORT STATUS: Signed EXAM: CHEST SINGLE (PORTABLE), AP 1 view INDICATION: Pneumonia COMPARISON: AP view of the chest July 06, 2018 FINDINGS: LINES/TUBES: None LUNGS: Bilateral airspace opacities, predominantly in the lung bases. PLEURA: No effusions or pneumothorax. HEART AND MEDIASTINUM: Normal size and contour. BONES AND SOFT TISSUES: No acute findings. Median sternotomy wires. IMPRESSION: Findings consistent with multifocal pneumonia, not significantly changed. Signed by: Dr. Padma Baer M.D. on 07/07/2018 6:42 AM Dictated By: PADMA BAER MD 1 Transcribed By: MARIA A on 07/07/1842 COPY TO: ISSAC SLOAN MD CHEST SINGLE (PORTABLE) 2018-07-06 15:52:00 [place] [address] Patient Name: FARHEEN YATES MR #: [id number] : 1945 Age/Sex: 73/F Req #: [id number] Adm Physician: ISSAC SLOAN MD Ordered by: BROWN GALVIN MD Report #: [id number] Location: [facility] Room/Bed: [facility]- Procedure: [id number] DX/CHEST SINGLE (PORTABLE) Exam Date: 07/06/18 Exam Time: 1440 REPORT STATUS: Signed EXAMINATION: CHEST SINGLE (PORTABLE) IN DICATION: Cough. COMPARISON: None FINDINGS: TUBES and LINES: None. LUNGS: Moderate lung volumes. Patchy opacities at the lung bases, left greater than right. Central vascular congestion without cal pulmonary edema. PLEURA: No pleural effusion or pneumothorax. HEART AND MEDIASTINUM: Mild enlargement of the cardiomediastinal silhouette. BONES AND SOFT TISSUES: No acute osseous lesion. Soft tissues are unremarkable. Status post median sternotomy. UPPER ABDOMEN: No free air under the diaphragm. IMPRESSION: Patchy opacities at the lung bases, left greater than right, which could represent pneumonia in a patient with cough. Follow-up chest radiograph to assess of resolution is suggested in 6-8 weeks. Mild cardiomegaly with central vascular congestion. Signed by: Dr. Kunal Salgado MD on 07/06/2018 3:56 PM Dictated By: KUNAL SALGADO MD [id number] Transcribed By: ESPERANZA Gardner on 07/06/18 1772 COPY TO: BROWN GALVIN MD
[2018-08-06 18:06] LABS: BASOPHILS # (AUTO) 0.1 (0.0-0.1); BASOPHILS % 0.8 % (0.0-1.0); EOSINOPHILS # (AUTO) 0.3 (0.0-0.4); EOSINOPHILS % 4.6 % (0.0-6.0); HEMATOCRIT 33.7 % (34.2-44.1); LYMPHOCYTES # (AUTO) 1.4 (1.0-3.2); LYMPHOCYTES % 21.9 % (18.0-39.1); MEAN CORPUSCULAR HGB CONC 32.6 g/dL (31-35); MEAN CORPUSCULAR VOLUME 91.8 fL (81-99); MONOCYTES # (AUTO) 0.7 (0.2-0.8); MONOCYTES % 10.4 % (4.4-11.3); PLATELET COUNT 340 x10e3/uL (140-360); RED BLOOD COUNT 3.67 x10e6/uL (3.6-5.1); RED CELL DISTRIBUTION WIDTH 14.3 % (11.7-14.4)
[2018-08-06 18:17] LABS: INR 0.95; PROTHROMBIN TIME 13.5 seconds (11.9-14.5)
[2018-08-06 18:18] LABS: PARTIAL THROMBOPLASTIN TIME 31.8 seconds (23.8-35.5)
--- NOTE | 2018-08-06 18:28 | Diagnostic Imaging Report ---
EXAMINATION: CHEST 2 VIEWS INDICATION: Shortness of breath on exertion, left leg swelling COMPARISON: Chest x-ray 07/12/2018, 07/11/18, chest x-ray 07/10/2018 FINDINGS: PA and lateral views TUBES and LINES: None. LUNGS: Diffuse hyperinflation consistent with COPD. Central vasculature is prominent and similar to previous exam. There is diffuse bronchial wall thickening. Left basilar opacities have slightly improved. No new findings in the right lung. PLEURA: Blunting of the posterior costophrenic angles is stable suggestive of pleural effusion or pleural thickening. HEART AND MEDIASTINUM: Stable cardiomegaly. BONES AND SOFT TISSUES: Median sternotomy wires are intact. No focal osseous lesions. Soft tissues are unremarkable. UPPER ABDOMEN: No free air under the diaphragm. IMPRESSION: Cardiomegaly and vascular congestion are similar. Improved left basilar opacities. Pulmonary hyperinflation consistent with COPD. Signed by: Dr. Navarro Mcgrath MD on 08/06/2018 6:25 PM
[2018-08-06 18:38] LABS: ALANINE AMINOTRANSFERASE 23 IU/L (0-55); ALBUMIN 3.8 g/dL (3.5-5.0); ALBUMIN/GLOBULIN RATIO 1.2 (0.8-2.0); ALKALINE PHOSPHATASE 42 IU/L (40-150); ANION GAP 12.7 mmol/L (8-16); BLOOD UREA NITROGEN 12 mg/dL (7-26); BUN/CREATININE RATIO 14 (6-25); CALCIUM 9.6 mg/dL (8.4-10.2); CARBON DIOXIDE 27 mmol/L (22-29); CHLORIDE 104 mmol/L (98-107); CREATINE KINASE 61 IU/L (29-168); CREATININE, SERUM 0.87 mg/dL (0.57-1.11); EST GLOMERULAR FILTRATION RATE > 60 ML/MIN (60-); GLUCOSE 114 mg/dL (74-118); POTASSIUM 3.7 mmol/L (3.5-5.1); SODIUM 140 mmol/L (136-145)
[2018-08-06 18:44] LABS: CLARITY,URINE CLEAR (CLEAR); COLOR,URINE YELLOW (YELLOW)
[2018-08-06 18:45] LABS: BILIRUBIN,URINE NEGATIVE (NEGATIVE); KETONES,URINE NEGATIVE (NEGATIVE); LEUKOCYTE ESTERASE ,URINE NEGATIVE (NEGATIVE); NITRITE,URINE NEGATIVE (NEGATIVE); PROTEIN,URINE DIPSTICK NEGATIVE (NEGATIVE); URINE UROBILINOGEN 0.2 mg/dL (0.2 - 1)
[2018-08-06 19:04] LABS: BACTERIA,URINE FEW /HPF; EPITHELIAL CELLS,URINE RARE /LPF; RBC,URINE 0-5 /HPF (0-5); WBC,URINE (MAN) 0-5 /HPF (0-5)
[2018-08-06] MEDS ORDERED: IOPAMIDOL 370 MG/ML 200 ML INFUS..BTL INJ ONE (19:15)
[2018-08-06] MEDS ORDERED: SODIUM CHLORIDE 0.9% 100 ML 100 ML ONE (19:15)
--- NOTE | 2018-08-06 19:19 | NUR ---
REPORT GIVEN TO IVONNE PLASCENCIACOMMUTATOR REPAIRERMETER READING CLERK NURSE.
--- NOTE | 2018-08-06 20:08 | Diagnostic Imaging Report ---
EXAM: CT CHEST W INDICATION: Shortness of breath, abnormal labs, leg swelling COMPARISON: None TECHNIQUE: Multidetector CT scanning of the chest was performed. Coronal and sagittal multiplanar reformations were obtained. Dose modulation, iterative reconstruction, and/or weight based adjustment of the mA/kV was utilized to reduce the radiation dose to as low as reasonably achievable. PE protocol performed. 3-D MIPS of the pulmonary arteries provided. IV Contrast: 100 cc Isovue-370 CTDIvol has been reviewed. It is below the limits set by the Radiation Protocol Committee (RPC). FINDINGS: LUNGS AND AIRWAYS: The trachea and major bronchi are unremarkable. Bilateral interstitial thickening and faint groundglass opacities. Subsegmental scarring/atelectasis in the right middle lobe and lingula. PLEURA: No effusions or pneumothorax. HEART, MEDIASTINUM, VESSELS: The heart is moderately enlarged. Trace pericardial effusion. Surgical changes of coronary artery bypass. Coronary artery calcifications. Atherosclerotic changes of the thoracic aorta without aneurysm. No mediastinal mass or lymphadenopathy. The main pulmonary artery is within normal size limits. No evidence of a pulmonary embolism. UPPER ABDOMEN: Simple lobulated cyst in the posterior superior aspect of the right lobe of the liver measuring 2.3 cm. MUSCULOSKELETAL: No acute findings. IMPRESSION: Cardiomegaly and mild pulmonary edema. No pulmonary embolism. Signed by: Dr. Queta Baer M.D. on 08/06/2018 8:04 PM
[2018-08-06] MEDS ORDERED: HYDRALAZINE HCL 20 MG/ML VIAL ONE (21:35)
[2018-08-06] MEDS ORDERED: HYDRALAZINE HCL 20 MG/ML VIAL IV STA ×2 (21:37→23:08)
[2018-08-06] MEDS ORDERED: FUROSEMIDE INJ 10 MG/ML 4 ML VIAL IV ONE (21:45)
== END 2018-08-06 23:40 | disposition home or self-care (01) ==
LOC: ER 16:52
DX: R06.09 Other forms of dyspnea (principal); I10 Essential (primary) hypertension; M79.89 Other specified soft tissue disorders; F41.9 Anxiety disorder, unspecified
CPT/HCPCS: 36415; 71046; 71260; 80053; 81001; 82550; 82553; 83880; 84484; 85025; 85610; 85730; 93005; 93971; 99284; J0360; J1940; Q9967

== ENCOUNTER 2019-04-19 12:49 | Observation (INO) | payer MEDICARE ==
[~2019-04-19] VITALS: Ht 165.1 cm; Wt 72.6 kg
[2019-04-19 13:40] LABS: BASOPHILS # (AUTO) 0.1 (0.0-0.1); BASOPHILS % 0.8 % (0.0-1.0); EOSINOPHILS # (AUTO) 0.1 (0.0-0.4); EOSINOPHILS % 1.3 % (0.0-6.0); HEMATOCRIT 36.6 % (34.2-44.1); HEMOGLOBIN 12.8 g/dL (12.0-16.0); LYMPHOCYTES # (AUTO) 1.9 (1.0-3.2); LYMPHOCYTES % 24.2 % (18.0-39.1); MEAN CORPUSCULAR HEMOGLOBIN 30.8 pg (28-32); MONOCYTES # (AUTO) 0.5 (0.2-0.8); MONOCYTES % 6.9 % (4.4-11.3); NEUTROPHILS # (AUTO) 5.2 (2.1-6.9); NEUTROPHILS % 66.4 % (38.7-80.0); PLATELET COUNT 245 x10e3/uL (140-360); RED BLOOD COUNT 4.16 x10e6/uL (3.6-5.1); RED CELL DISTRIBUTION WIDTH 13.4 % (11.7-14.4)
[2019-04-19 13:56] LABS: INR 0.87; PROTHROMBIN TIME 12.3 seconds (11.9-14.5)
[2019-04-19 13:57] LABS: PARTIAL THROMBOPLASTIN TIME 21.6 seconds (23.8-35.5)
[2019-04-19 14:06] LABS: ALBUMIN 3.9 g/dL (3.5-5.0); ALBUMIN/GLOBULIN RATIO 1.3 (0.8-2.0); ANION GAP 14.1 mmol/L (8-16); CALCIUM 9.4 mg/dL (8.4-10.2); CREATININE, SERUM 1.04 mg/dL (0.57-1.11); POTASSIUM 4.1 mmol/L (3.5-5.1)
--- NOTE | 2019-04-19 14:22 | Diagnostic Imaging Report ---
CT BRAIN WO HISTORY: Syncope COMPARISON: None. Technique: Noncontrast axial scans were obtained from skull base to the vertex. Coronal and sagittal reconstructions obtained from the axial data. One or more of the following dose reduction techniques were used: Automated exposure control, adjustment of the mA and/or kV according to patient size, and/or utilization of iterative reconstruction technique. DISCUSSION: Scalp/Skull: Unremarkable. Brain sulci: Mildly prominent. Ventricles: Compensatory dilatation. Extra-axial spaces: No masses or fluid collections. Carotid siphon calcifications are present. Parenchyma: Mild bilateral deep white matter hypodensity is likely chronic microvascular ischemic change. Small juxtacortical hypodensity in the upper left insular region may be an old lacunar infarct or prominent perivascular space. Otherwise, no masses, hemorrhage, or large vascular territory acute infarct. Dural sinuses: No abnormal densities. Sellar/Suprasellar region: Intact. Skull base: Intact. Incidental findings: Right ocular lens replacement. Minimal left sphenoid sinus mucosal thickening. IMPRESSION: 1. No acute intracranial abnormalities. 2. Mild supratentorial chronic microvascular ischemic change. Mild generalized cerebral volume loss. 3. Small juxtacortical hypodensity in the upper left insular region may be an old lacunar infarct or prominent perivascular space. Signed by: Dr. Chris Jordan M.D. on 04/19/2019 2:16 PM
--- NOTE | 2019-04-19 14:22 | Diagnostic Imaging Report ---
EXAMINATION: CHEST SINGLE (PORTABLE) INDICATION: Near syncope COMPARISON: Multiple prior chest radiograph, most recently of 08/06/2018, chest CT of 08/06/2018 FINDINGS: LINES/TUBES:EKG leads overlie the chest. LUNGS:The lungs are well-inflated. There is perihilar fullness and indistinctness of the pulmonary vasculature. PLEURA:No pleural effusion or pneumothorax. MEDIASTINUM: The cardiac silhouette is stably enlarged. BONES/SOFT TISSUES:No acute osseous injury. Sternotomy wires in place. ABDOMEN:No free air under the diaphragm. IMPRESSION: Mild interstitial pulmonary edema. Stable cardiomegaly. Signed by: Shannon Guadalupe MD on 04/19/2019 1:41 PM
[2019-04-19 14:29] LABS: CREATINE KINASE MB 2.5 ng/mL (0-5.0); THYROID STIMULATING HORMONE 1.622 uIU/mL (0.350-4.940)
[2019-04-19 14:49] LABS: BILIRUBIN,URINE NEGATIVE (NEGATIVE); CLARITY,URINE CLEAR (CLEAR); COLOR,URINE YELLOW (YELLOW); KETONES,URINE NEGATIVE (NEGATIVE); LEUKOCYTE ESTERASE ,URINE NEGATIVE (NEGATIVE); NITRITE,URINE NEGATIVE (NEGATIVE); PROTEIN,URINE DIPSTICK NEGATIVE (NEGATIVE); URINE UROBILINOGEN 0.2 mg/dL (0.2 - 1)
[2019-04-19 15:03] LABS: BACTERIA,URINE RARE /HPF; EPITHELIAL CELLS,URINE RARE /LPF
[2019-04-19 15:04] LABS: RENAL EPITHELIAL CELLS,URINE RARE
[2019-04-19] MEDS ORDERED: DEXTROSE 50% SYRINGE 50 ML IV PRN (16:00)
[2019-04-19] MEDS ORDERED: ASPIRIN 81 MG CHEW TAB PO ONE (16:00)
[2019-04-19] MEDS ORDERED: SODIUM CHLORIDE FLUSH 10 ML SYR INJ PRN (16:00)
[2019-04-19] MEDS ORDERED: ONDANSETRON HCL INJ 2MG/ML 2ML 2 MG/ML VIAL IV PRN (16:00)
[2019-04-19] MEDS ORDERED: CETIRIZINE HCL10 MG PO (16:10)
[2019-04-19] MEDS ORDERED: ESIDRIX25 MG PO (16:10)
[2019-04-19] MEDS ORDERED: CARBIDOPA-LEVO1 EAC1 PO (16:10)
[2019-04-19] MEDS ORDERED: INSULIN REGULAR, HUMAN 100 UNIT/1 ML 3ML VIAL SQ SCH (16:30)
[2019-04-19] MEDS ORDERED: TIZANIDINE HCL 4 MG TAB PO PRN (19:30)
[2019-04-19] MEDS ORDERED: ACETAMINOPHEN 325 MG TAB PO PRN (19:30)
[2019-04-19 20:00] VITALS: BP 193/81
[2019-04-19] MEDS ORDERED: HYDRALAZINE HCL 20 MG/ML VIAL IV PRN (21:30)
[2019-04-19] MEDS: CARBIDOPA/LEVODOPA 25/100 TAB PO SCH (21:48)
[2019-04-19] MEDS: GABAPENTIN 300 MG CAP PO SCH (21:48)
[2019-04-19] MEDS: ROPINIROLE HCL 1 MG TAB PO SCH (21:48)
[2019-04-19] MEDS: ZOLPIDEM TARTRATE 5 MG TAB PO PRN (21:48)
[2019-04-19] MEDS: ATORVASTATIN 10 MG TAB PO SCH (21:48)
[2019-04-19 22:47] LABS: CREATINE KINASE MB 2.4 ng/mL (0-5.0)
[2019-04-19] MEDS ORDERED: DEXTROSE 5%/0.45% SOD CHL 1,000 ML IV ONE (23:00)
[2019-04-20] VITALS (7 sets, daily range): BP systolic 142–198; BP diastolic 66–80
[2019-04-20] MEDS: LEVOTHYROXINE SODIUM 75 MCG TAB PO SCH (05:03)
[2019-04-20] MEDS ORDERED: ONDANSETRON HCL 4 MG ORAL DISINTEGRATING TAB PO PRN (06:45)
[2019-04-20 06:50] LABS: CREATINE KINASE MB 1.7 ng/mL (0-5.0)
[2019-04-20] MEDS ORDERED: FENOFIBRATE 145 MG TAB PO SCH (09:00)
[2019-04-20] MEDS ORDERED: AMLODIPINE BESYLATE 5 MG TAB PO SCH (09:00)
[2019-04-20] MEDS ORDERED: NON-FORMULARY MEDICATION (Escitalopram Oxalate (Lexapro) 20 MG) PO SCH (09:00)
[2019-04-20] MEDS ORDERED: HYDROCHLOROTHIAZIDE 25 MG TAB PO SCH (09:00)
--- NOTE | 2019-04-20 09:58 | Diagnostic Imaging Report ---
Exam: CT pulmonary angiogram Clinical History: Shortness of breath Comparison: August 06, 2018 Technique: Helical images of the chest were obtained after IV contrast administration using the pulmonary embolism protocol. DOSE REDUCTION: The exams was performed according to the departmental dose-optimization program which includes automated exposure control, adjustment of the mA and/or kV according to patient size and/or use of iterative reconstruction technique. Findings: There is no evidence of acute pulmonary embolism in the main pulmonary artery or its visualized branches. There is no evidence of pulmonary edema, consolidation, pleural effusion, or pneumothorax. Tracheobronchial tree is clear. There is no evidence of mediastinal or hilar adenopathy. The cardiac size is within normal limits. The great vessels are normal in caliber and configuration. There is interval improving scarring lingular region. The overall groundglass opacity has also improved. The visualized upper abdominal solid organs are unremarkable. Impression: No CT evidence of acute pulmonary embolism. Signed by: Dr. Rivas Wilburn MD on 04/20/2019 9:55 AM
[2019-04-20] MEDS ORDERED: IOPAMIDOL 370 MG/ML 200 ML INFUS..BTL INJ ONE (10:19)
[2019-04-20] MEDS ORDERED: SODIUM CHLORIDE 0.9% 50ML 50 ML ONE (10:19)
[2019-04-20] MEDS: ASPIRIN 81 MG ENTERIC COATED PO SCH (10:58)
[2019-04-20] MEDS: LOSARTAN POTASSIUM 100 MG TAB PO SCH (10:59)
[2019-04-20] MEDS: CARBIDOPA/LEVODOPA 25/100 TAB PO SCH ×3 (10:59→20:04)
[2019-04-20] MEDS: ESCITALOPRAM OXALATE 10 MG TAB PO SCH (10:59)
[2019-04-20] MEDS: CLOPIDOGREL BISULFATE 75 MG TAB PO SCH (10:59)
[2019-04-20] MEDS: GABAPENTIN 300 MG CAP PO SCH ×3 (10:59→20:03)
[2019-04-20] MEDS: FENOFIBRATE 145 MG TAB PO SCH (11:00)
[2019-04-20] MEDS: FENOFIBRATE 48 MG TAB PO SCH (11:00)
[2019-04-20] MEDS: TOLTERODINE TARTRATE 4 MG CAPCR PO SCH (11:00)
[2019-04-20] MEDS ORDERED: NIFEDIPINE CR 30 MG TAB PO SCH ×2 (12:30→20:00)
--- NOTE | 2019-04-20 19:14 | NUR ---
Received change of shift report from AM nurse Shun CORONADO. Walking rounds completed.
[2019-04-20] MEDS: NIFEDIPINE CR 30 MG TAB PO SCH (19:55)
[2019-04-20] MEDS: ATORVASTATIN 10 MG TAB PO SCH (20:03)
[2019-04-20] MEDS: ROPINIROLE HCL 1 MG TAB PO SCH (20:04)
[2019-04-20] MEDS: ZOLPIDEM TARTRATE 5 MG TAB PO PRN (22:38)
[2019-04-21] VITALS: BP 111/56
[2019-04-21 04:00] VITALS: BP 123/63
[2019-04-21] MEDS: LEVOTHYROXINE SODIUM 75 MCG TAB PO SCH (06:00)
[2019-04-21 08:01] VITALS: BP 127/61
[2019-04-21] MEDS: LOSARTAN POTASSIUM 100 MG TAB PO SCH (08:27)
[2019-04-21] MEDS: TOLTERODINE TARTRATE 4 MG CAPCR PO SCH (08:27)
[2019-04-21] MEDS: ASPIRIN 81 MG ENTERIC COATED PO SCH (08:27)
[2019-04-21] MEDS: ESCITALOPRAM OXALATE 10 MG TAB PO SCH (08:27)
[2019-04-21] MEDS: NIFEDIPINE CR 30 MG TAB PO SCH (08:27)
[2019-04-21] MEDS: FENOFIBRATE 48 MG TAB PO SCH (08:28)
[2019-04-21] MEDS: FENOFIBRATE 145 MG TAB PO SCH (08:28)
[2019-04-21] MEDS: CLOPIDOGREL BISULFATE 75 MG TAB PO SCH (08:28)
[2019-04-21] MEDS: CARBIDOPA/LEVODOPA 25/100 TAB PO SCH (08:28)
[2019-04-21] MEDS: GABAPENTIN 300 MG CAP PO SCH (08:28)
[2019-04-21 08:35] VITALS: BP 127/61
[2019-04-21 12:05] VITALS: BP 131/60
[2019-04-21] MEDS ORDERED: NIFEDIPINE ER30 M1 PO (14:29)
--- NOTE | 2019-04-22 05:17 | Discharge Summary ---
PRIMARY CARE DOCTOR: Dr. Martin Harvey. FINAL DIAGNOSIS: Presyncope due to iatrogenic bradycardia. SECONDARY DIAGNOSES: 1. Uncontrolled hypertension, better. 2. Coronary artery disease. 3. Hypothyroidism. 4. Parkinson disease. CONSULTANTS: None. PROCEDURES/STUDIES PERFORMED: 1. Echocardiogram which was fairly benign. 2. CTA of the chest, which was normal including no PE. 3. Head CT which did not show any acute disease. HISTORY: Per [facility] and [facility]. HOSPITAL COURSE: The patient was admitted after holding her Coreg. Now her heart rate is around 60 to 63, initially it was in the high 40s. Therefore, at this time, I will not try to rechallenge her with 3.125 mg of Coreg, even though she does have coronary artery disease. The patient also has erratic breathing difficulties. CTA of the chest was benign including no PE. After switching her amlodipine to nifedipine, her blood pressure is better now and her breathing seems to be better. Possibly there might be a component of anxiety. I have updated both the daughter over the phone and also the primary care doctor, whom she will follow up in 3 days. The patient will be seen and examined today. CONDITION ON DISCHARGE: Improved. DISCHARGE MEDICATIONS: Please see medication reconciliation form. MD CHUY Ma/CATALINO /[id number] cc: [facility]
== END 2019-04-21 15:15 | disposition home or self-care (01) ==
LOC: ER 12:49 → ERHOLD 16:33 → IMCU 18:34
PROVIDERS: ADMIT Internal Medicine; ATTEND Internal Medicine
DX: R00.1 Bradycardia, unspecified (principal); R55 Syncope and collapse; T44.7X5A Adverse effect of beta-adrenoreceptor antagonists, initial encounter; I25.10 Atherosclerotic heart disease of native coronary artery without angina pectoris; R06.02 Shortness of breath; E87.1 Hypo-osmolality and hyponatremia; E03.9 Hypothyroidism, unspecified; I10 Essential (primary) hypertension
CPT/HCPCS: 36415; 70450; 71045; 71260; 80053; 81001; 82550 ×2; 82553 ×2; 83880; 84443; 84484 ×2; 85025; 85610; 85730; 87086; 93005; 93306; 96361 ×2; 97116; 97161; 99285; G0378 ×3; J0360; Q9967; 96360

== ENCOUNTER 2021-10-15 09:51 | Emergency (ER) | payer MEDICARE ==
[~2021-10-15] VITALS: Ht 157.5 cm; Wt 59.0 kg
[~2021-10-15 09:51] MED LIST changes: +CARBIDOPA-LEVO1 EAC1 PO; +CETIRIZINE HCL10 MG PO; +ESIDRIX25 MG PO; +NIFEDIPINE ER30 M1 PO
[2021-10-15 10:25] LABS: BASOPHILS % 0.5 % (0.0-1.0); CLARITY,URINE SL CLOUDY (CLEAR); COLOR,URINE YELLOW (YELLOW); EOSINOPHILS % 0.1 % (0.0-6.0); HEMATOCRIT 38.4 % (34.2-44.1); HEMOGLOBIN 13.3 g/dL (12.0-16.0); KETONES,URINE NEGATIVE (NEGATIVE); LEUKOCYTE ESTERASE ,URINE MODERATE (NEGATIVE); LYMPHOCYTES # (AUTO) 0.9 (1.0-3.2); LYMPHOCYTES % 11.7 % (18.0-39.1); MEAN CORPUSCULAR HEMOGLOBIN 31.2 pg (28-32); MEAN CORPUSCULAR HGB CONC 34.6 g/dL (31-35); MEAN CORPUSCULAR VOLUME 90.1 fL (81-99); MONOCYTES # (AUTO) 0.3 (0.2-0.8); MONOCYTES % 3.8 % (4.4-11.3); NEUTROPHILS # (AUTO) 6.4 (2.1-6.9); NEUTROPHILS % 83.8 % (38.7-80.0); NITRITE,URINE POSITIVE (NEGATIVE); PLATELET COUNT 302 x10e3/uL (140-360); PROTEIN,URINE DIPSTICK 2+ (NEGATIVE); RED BLOOD COUNT 4.26 x10e6/uL (3.6-5.1); URINE UROBILINOGEN 0.2 mg/dL (0.2 - 1)
[2021-10-15 10:39] LABS: BACTERIA,URINE MANY /HPF; EPITHELIAL CELLS,URINE FEW /LPF; RBC,URINE 0-5 /HPF (0-5); WBC,URINE (MAN) >50 /HPF (0-5)
[2021-10-15 10:42] LABS: INR 0.94; PROTHROMBIN TIME 13.4 seconds (11.9-14.5)
[2021-10-15] MEDS ORDERED: CEFTRIAXONE 1 GM VIAL IV ONE (10:45)
[2021-10-15] MEDS ORDERED: CEFTRIAXONE 1 GM in SODIUM CHLORIDE 0.9% 50ML 50 ML IV ONE (11:15)
[2021-10-15 11:22] LABS: ALBUMIN 4.1 g/dL (3.5-5.0); ALBUMIN/GLOBULIN RATIO 1.2 (0.8-2.0); ANION GAP 12.1 mmol/L (8-16); CALCIUM 9.7 mg/dL (8.4-10.2); CREATININE, SERUM 0.76 mg/dL (0.57-1.11); POTASSIUM 4.1 mmol/L (3.5-5.1)
[2021-10-15] MEDS ORDERED: CEFDINIR300 MG PO (11:47)
== END 2021-10-15 14:27 ==
LOC: ER 09:53
DX: R39.89 Other symptoms and signs involving the genitourinary system (principal); N39.0 Urinary tract infection, site not specified; F03.90 Unspecified dementia, unspecified severity, without behavioral disturbance, psychotic disturbance, mood disturbance, and anxiety; I12.9 Hypertensive chronic kidney disease with stage 1 through stage 4 chronic kidney disease, or unspecified chronic kidney disease; N18.9 Chronic kidney disease, unspecified; E78.5 Hyperlipidemia, unspecified; E03.9 Hypothyroidism, unspecified; I25.10 Atherosclerotic heart disease of native coronary artery without angina pectoris; K21.9 Gastro-esophageal reflux disease without esophagitis
CPT/HCPCS: 36415; 70450; 80053; 81001; 84484; 85025; 85610; 87086; 87186; 93005; 99284; J0696